=== PATIENT | male | born 1970 | race Asian ===

== ENCOUNTER 2016-10-14 16:16 | Emergency (ER) | payer MEDICAID ==
[~2016-10-14] VITALS: Ht 170.2 cm; Wt 64.9 kg
[2016-10-14 16:26] VITALS: BP_SYST 144
--- NOTE | 2016-10-14 16:36 | NUR ---
Patient to ER bed 04 to gown for evaluation. Side rails up. Report given to Sathya.
--- NOTE | 2016-10-14 16:45 | NUR ---
Dr. Finley at bedside for evaluation
[2016-10-14] MEDS ORDERED: DIPH-TET-PERTUS Vaccine 0.5 ML VIAL (ADACEL) IM ONE (17:00)
--- NOTE | 2016-10-14 17:11 | NUR ---
Patient given written and verbal discharge instructions and verbalizes understanding. ER MD discussed with patient the results and treatment provided. Patient in stable condition. ID arm band removed. Rx of augmentin given. Patient educated on pain management and to follow up with PMD. Pain Scale 0/10. Opportunity for questions provided and answered.
[2016-10-14 17:12] VITALS: BP_SYST 141
== END 2016-10-14 17:12 | disposition home or self-care (01) ==
LOC: SED 16:16
DX: S61.451A Open bite of right hand, initial encounter (principal); W54.0XXA Bitten by dog, initial encounter; Y93.89 Activity, other specified; Y92.89 Other specified places as the place of occurrence of the external cause; Y99.8 Other external cause status
CPT/HCPCS: 90715; 99283